=== PATIENT | male | born 1995 | race Caucasian/White ===

== ENCOUNTER 2019-05-27 20:26 | Emergency (ER) | payer BC ==
[~2019-05-27] VITALS: Ht 172.7 cm; Wt 138.0 kg
[2019-05-27] MEDS ORDERED: PENI500T2 PO (21:29)
[2019-05-27 21:50] VITALS: BP 153/107
== END 2019-05-27 21:52 | disposition home or self-care (01) ==
LOC: ER 20:26
DX: K04.7 Periapical abscess without sinus (principal)
CPT/HCPCS: 99283